=== PATIENT | male | born 1945 | race African-American/Black ===

== ENCOUNTER 2017-01-06 08:08 | Day surgery (SDC) | payer OTHER, BC ==
[2017-01-06 08:47] VITALS: BMI 23.1
[2017-01-06] MEDS ORDERED: PROPOFOL 20 ML ONE (09:57)
[2017-01-06] MEDS ORDERED: LIDOCAINE VISCOUS 2% ORAL/TOP 100 ML BOTTLE MM ONE ×2 (10:28)
[2017-01-06 11:00] VITALS: TEMP 98
[2017-01-06 12:05] VITALS: BP 132/76; PULSE 72
--- NOTE | 2017-01-07 12:22 | PATH ---
Surgical Pathology Report Patient Name: MATTHEW PIERCE [facility]. Rec. #: [id number] /Age/Gender: 1945 (Age: 71) / M Account: [id number] Location: [facility]-ENDOSCOPY Taken: 01/06/2017 Received: 01/06/2017 Reported: 01/07/2017 Physicians: Cesar Benavides M.D. Specimen(s) Received A: BX DUODENUM B: BX BODY OF STOMACH Clinical History GERD, early satiety, epigastric pain Celiac sprue, gastric erythema Final Diagnosis A. DUODENUM, BIOPSY : DUODENAL MUCOSA WITH ACTIVE AND CHRONIC INFLAMMATION AND FOCAL VILLUS BLUNTING (SEE COMMENT). Comment: History of celiac sprue is noted. The histologic findings, while not entirely specific, may represent gluten sensitive enteropathy (celiac sprue) in proper clinical and serological settings. B. STOMACH, BODY, BIOPSY: GASTRIC ANTRAL MUCOSA WITH MILD TO MODERATE CHRONIC GASTRITIS. IMMUNOSTAIN FOR H. PYLORI IS NEGATIVE FOR ORGANISMS. Electronically Signed Morales Faye M.D. Gross Description A. Received in formalin, labeled "biopsy duodenum" is a webb, irregular portion of soft tissue measuring 0.6 cm in greatest dimension. The specimen is submitted in toto in one cassette. B. Received in formalin, labeled "biopsy body of stomach" are 4 webb, irregular portions of soft tissue ranging from 0.1-0.2 cm in greatest dimension. The specimens are submitted in toto in one cassette. 01/06/201701/06/2017
== END 2017-01-06 12:09 | disposition home or self-care (01) ==
LOC: JASU-ENDO 08:08
PROVIDERS: ATTEND Internal Medicine Gastroenterology
PROC: 0DB98ZX Excision of Duodenum, Via Natural or Artificial Opening Endoscopic, Diagnostic (ICD-10-PCS; principal; 2017-01-06 09:00)
DX: K29.50 Unspecified chronic gastritis without bleeding (principal); K29.80 Duodenitis without bleeding; R19.4 Change in bowel habit; R68.81 Early satiety
CPT/HCPCS: 88305-TC; 88342-TC

== ENCOUNTER 2017-01-20 08:41 | Day surgery (SDC) | payer OTHER, BC ==
[2017-01-20] MEDS ORDERED: LIDOCAINE HCL/PF 2% SDV 5ML VIAL ONE (12:06)
[2017-01-20 12:13] VITALS: BMI 24.5
[2017-01-20 13:03] VITALS: TEMP 97.6
[2017-01-20] MEDS ORDERED: ACETAMINOPHEN 500 MG TABLET (FP) ONE (13:44)
[2017-01-20 16:00] VITALS: BP 110/65; PULSE 81
== END 2017-01-20 14:15 | disposition home or self-care (01) ==
LOC: JASU-ENDO 08:41
PROVIDERS: ATTEND Internal Medicine Gastroenterology
PROC: 0W3P8ZZ Control Bleeding in Gastrointestinal Tract, Via Natural or Artificial Opening Endoscopic (ICD-10-PCS; principal; 2017-01-20 12:30)
DX: K62.5 Hemorrhage of anus and rectum (principal); K62.7 Radiation proctitis; Z85.46 Personal history of malignant neoplasm of prostate; K57.30 Diverticulosis of large intestine without perforation or abscess without bleeding

== ENCOUNTER 2017-04-21 09:49 | Day surgery (SDC) | payer OTHER, BC ==
[2017-04-21 10:21] VITALS: BMI 23.1
[2017-04-21 13:19] VITALS: TEMP 97.6
[2017-04-21 13:36] VITALS: PULSE 71
[2017-04-21 14:33] VITALS: BP 130/80
== END 2017-04-21 14:32 | disposition home or self-care (01) ==
LOC: JASU-ENDO 09:49
PROVIDERS: ATTEND Internal Medicine Gastroenterology
PROC: 0D5P8ZZ Destruction of Rectum, Via Natural or Artificial Opening Endoscopic (ICD-10-PCS; principal; 2017-04-21 11:30)
DX: K62.5 Hemorrhage of anus and rectum (principal); K62.7 Radiation proctitis; Z85.46 Personal history of malignant neoplasm of prostate

== ENCOUNTER 2017-05-07 14:23 | Emergency (ER) | payer OTHER, BC ==
[2017-05-07 14:39] VITALS: TEMP 98.3; BMI 23.1
--- NOTE | 2017-05-07 16:21 | PDOC ---
Attending Attestation - Resident Resident Name: Nisa Bowling - ED Attending Attestation I have performed the following: I have examined & evaluated the patient, The case was reviewed & discussed with the resident, I agree w/resident's findings & plan, Exceptions are as noted - Medical Decision Making 05/07/17 16:21 I, Dr. Frances Reid, DO, attest that this document has been prepared under my direction and personally reviewed by me in its entirety. I further attest, that it accurately reflects all work, treatment, procedures and medical decision -making performed by me. 05/07/17 18:16 a/p: 72yo male with R rib pain after falling -pt s/p lung transplant will obtain ct chest also to r/o rib fractures, none seen on wet read of xray -xray knee no acute fractures -pt has been ambulatory in the ED -pain control <Frances Reid - Last Filed: 05/07/17 18:16> - HPI HPI: 05/07/17 17:38 Rusty Cook Pt is a 72 yo M with a PMHx of prostate CA, Double lung transplant, bladder CA who presents to the ED s/p mechanical fall. Patient reports he was getting out of his car when tripped on a rock and fell approximately 2-30 feet down an aqueduct. Patient reports R ribcage pain and L knee pain. Patient denied any head trauma, headache, neck pain, nausea or vomiting. - Physicial Exam PE: 05/07/17 17:38 GENERAL: Awake, alert, and fully oriented, in no acute distress HEAD: No signs of trauma EYES: PERRLA, EOMI, sclera anicteric, conjunctiva clear ENT: Auricles normal inspection, hearing grossly normal, nares patent, oropharynx clear without exudates. Moist mucosa NECK: Normal ROM, supple, no lymphadenopathy, JVD, or masses LUNGS: Breath sounds equal, clear to auscultation bilaterally. No wheezes, and no crackles HEART: +Tenderness to R lateral and anterior chest wall. Well healed scar underneath chest area. Regular rate and rhythm, normal S1 and S2, no murmurs, rubs or gallops ABDOMEN: Soft, nontender, normoactive bowel sounds. No guarding, no rebound. No masses EXTREMITIES: Normal range of motion, no edema. No clubbing or cyanosis. No cords, erythema, or tenderness. Full ROM NEUROLOGICAL: Cranial nerves II through XII grossly intact. Normal speech, normal gait SKIN: No ecchymosis. Warm, Dry, normal turgor, no rashes or lesions noted. - Medical Decision Making 05/07/17 17:38 Documentation prepared by Henna Munson, acting as medical sonographer for Frances Reid DO 05/07/17 17:42 <Henna Munson - Last Filed: 05/07/17 19:00>
[2017-05-07] MEDS ORDERED: traMADol HCL 50 MG TABLET PO ONE (17:35)
[2017-05-07] MEDS ORDERED: traMADol HCL 50 MG TABLET ONE (17:40)
--- NOTE | 2017-05-07 17:42 | PDOC ---
History of Present Illness - General Chief Complaint: Injury Stated Complaint: FELL Time Seen by Provider: 05/07/17 15:25 History Source: Patient - History of Present Illness Initial Comments: 05/07/17 18:02 CC: Fall Patient is a 72 y.o. male with a PMH of sarcoidosis (s/p B/L Lung Transplant in 2004) who presents to our ED today following a mechanical fall. Patient was getting out of his car and tripped over a rock somsersaulting and then falling on his L side. Patient estimates he rolled 15-20 feet and denies any loss of consciousness or head trauma. Patient notes he is able to ambulate post fall, however he has significant knee pain when trying to flex or extend his LLE. Past History - Past Medical History Allergies/Adverse Reactions: Allergies Allergy/AdvReac Type Severity Reaction Status Date / Time levofloxacin [From Levaquin] Allergy Verified 05/07/17 14:38 Penicillins Allergy Verified 05/07/17 14:38 plasma protein fraction Allergy Verified 05/07/17 14:38 Home Medications: Ambulatory Orders Magnesium 420 mg PO BID 01/30/16 Prednisone 10 mg PO DAILY 01/30/16 Multivitamin with Minerals [Icaps Plus] 1 each PO DAILY 01/06/17 Pantoprazole Sodium [Protonix -] 40 mg PO DAILY #30 tablet.ec 01/06/17 Tacrolimus [Prograf] 2.5 mg PO BID 01/06/17 Tamsulosin HCl [Flomax -] 0.4 mg PO DAILY 01/06/17 Tramadol HCl [Ultram -] 50 mg PO Q6H 01/06/17 Calcium (Oyster Shell) [Os-Ottoniel 500MG -] 500 mg PO DAILY 04/20/17 Hydrophilic Ointment 1 applic TP DAILY 04/20/17 Hyoscyamine Sulfate 0.125 mg SL Q4HWA PRN 04/21/17 Hypromellose 0.5% Opth Soln [Artificial Tears] 1 drop IO DAILY 04/21/17 Lidocaine 2% Viscous Oral/Top [Xylocaine 2% Viscous] 15 ml MM 5XD PRN 04/21/17 Oxybutynin Chloride 5 mg PO TID 04/21/17 Pentosan Polysulfate Sodium [Elmiron] 100 mg PO TID 04/21/17 Phenazopyridine HCl 100 mg PO TID 04/21/17 Trospium Chloride [Trospium Chloride ER] 20 mg PO BID 04/21/17 Lidocaine 5% Patch [Lidoderm -] 1 patch TP DAILY #7 patch 05/07/17 Tramadol HCl [Ultram -] 50 mg PO Q8H #30 tablet MDD 4 05/07/17 Cancer: Yes (PROSTATE CA) Diabetes: Yes (DIET CONTROLLED) GI Disorders: Yes (ESOPHAGEAL REFLUX,RECTAL BLEEDING) Disorders: (POOR KIDNEY FUNCTION) Hypercholesterolemia: Yes Liver Disease: (ELEVATED LIVER ENZYMES) Lung CA: (B/L LUNG TRANSPLANT DUE TO SARCODOSIS) - Surgical History Abdominal Surgery: Yes (HERNIA SX) Cholecystectomy: Yes Lung Surgery: Yes (BILATERAL LUNG TRANSPLANT) - Suicide/Smoking/Psychosocial Hx Smoking History: Unknown if ever smoked Have you smoked in the past 12 months: No Information on smoking cessation initiated: No Hx Alcohol Use: No Drug/Substance Use Hx: No Substance Use Type: None Review of Systems - Review of Systems Constitutional: No: Chills, Fever HEENTM: No: Blurred Vision, Throat Pain Respiratory: No: Cough, Shortness of Breath Cardiac (ROS): Yes: Chest Pain. No: Irregular Heart Rate, Lightheadedness, Palpitations ABD/GI: No: Constipated, Diarrhea, Nausea, Vomiting Musculoskeletal: Yes: Joint Pain All Other Systems: Reviewed and Negative *Physical Exam - Vital Signs Last Vital Signs Temp Pulse Resp BP Pulse Ox 98.3 F 79 18 113/70 100 05/07/17 14:34 05/07/17 14:34 05/07/17 14:34 05/07/17 14:34 05/07/17 14:34 - Physical Exam General Appearance: Yes: Nourished, Thin Neck: positive: Trachea midline, Supple Respiratory/Chest: positive: Lungs Clear, Normal Breath Sounds Cardiovascular: positive: Regular Rhythm, Regular Rate, S1, S2 Gastrointestinal/Abdominal: positive: Normal Bowel Sounds, Soft Musculoskeletal: positive: Other (TTP R sided precordial chest pain) Extremity: positive: Normal Capillary Refill, Normal Inspection, Other (L patellar TTP, pain on flexion and extension, no appreciable patellar swelling) Integumentary: positive: Normal Color, Dry, Warm Neurologic: positive: Fully Oriented, Alert Deep Tendon Reflexes: Knee (L): 1+, Knee (R): 1+ ED Treatment Course - RADIOLOGY Radiology Studies Ordered: Category Date Time Status CHEST PA & LAT [RAD] Stat Radiology 05/07/17 16:07 Taken KNEE 3 POS-LEFT [RAD] Stat Radiology 05/07/17 16:07 Taken - Medications Given in the ED: ED Medications Discontinued Medications Generic Name Dose Route Start Last Admin Trade Name Kevinq PRN Reason Stop Dose Admin Tramadol HCl 50 mg 05/07/17 17:35 05/07/17 17:39 Ultram - PO 05/07/17 17:36 50 mg ONCE ONE Administration Medical Decision Making - Medical Decision Making 05/07/17 18:14 Patient is a 72 y.o. male who presents following a mechanical fall. As patient has a h/o B/L lung transplant, clinical threshold for admission for rib fractures is low, CT chest ordered as well as L knee XR. Patient signed out to Dr. Brown (Resident) and Dr. Saini (Attending). *DC/Admit/Observation/Transfer Diagnosis at time of Disposition: Chest wall contusion - Discharge Dispostion Disposition: HOME Condition at time of disposition: Good - Prescriptions Prescriptions: Lidocaine 5% Patch [Lidoderm -] 1 patch TP DAILY #7 patch Tramadol HCl [Ultram -] 50 mg PO Q8H #30 tablet MDD 4 - Patient Instructions Printed Discharge Instructions: DI for Rib Contusion
[2017-05-07 19:59] VITALS: BP 114/71; PULSE 72
--- NOTE | 2017-05-07 20:10 | PDOC ---
*Physical Exam - Vital Signs Last Vital Signs Temp Pulse Resp BP Pulse Ox 98.3 F 72 17 114/71 97 05/07/17 14:34 05/07/17 19:57 05/07/17 19:57 05/07/17 19:57 05/07/17 19:57 - Physical Exam Comments: 05/07/17 20:21 GENERAL: Awake, alert, and fully oriented, in no acute distress HEAD: No signs of trauma, normocephalic, atraumatic EYES: PERRLA, EOMI, sclera anicteric, conjunctiva clear ENT: Auricles normal inspection, hearing grossly normal, nares patent, oropharynx clear without exudates. Moist mucosa LUNGS: No distress, speaks full sentences, clear to auscultation bilaterally HEART: Regular rate and rhythm, normal S1 and S2, no murmurs, rubs or gallops, peripheral pulses normal and equal bilaterally. EXTREMITIES: Normal inspection, Normal range of motion, no edema. No clubbing or cyanosis. NEUROLOGICAL: Cranial nerves II through XII grossly intact. Normal speech, no focal sensorimotor deficits ED Treatment Course - Medications Given in the ED: ED Medications Discontinued Medications Generic Name Dose Route Start Last Admin Trade Name Freq PRN Reason Stop Dose Admin Tramadol HCl 50 mg 05/07/17 17:35 05/07/17 17:39 Ultram - PO 05/07/17 17:36 50 mg ONCE ONE Administration Medical Decision Making - Medical Decision Making 05/07/17 20:[address] Bowling. Vital signs stable. Patient is pending CT Chest to evaluate for rib fractures. S/P b/l lung transplant, will admit to [facility] if there are multiple rib fractures. 05/07/17 20:35 CT negative. Will discharge with return precautions and follow up. *DC/Admit/Observation/Transfer Diagnosis at time of Disposition: Chest wall contusion Qualifiers: Encounter type: initial encounter - Discharge Dispostion Disposition: HOME Condition at time of disposition: Good Admit: No - Prescriptions Prescriptions: Tramadol HCl [Ultram -] 50 mg PO Q8H #30 tablet MDD 4 - Patient Instructions Printed Discharge Instructions: DI for Rib Contusion
--- NOTE | 2017-05-07 20:35 | PDOC ---
*Physical Exam - Vital Signs Last Vital Signs Temp Pulse Resp BP Pulse Ox 98.3 F 72 17 114/71 97 05/07/17 14:34 05/07/17 19:57 05/07/17 19:57 05/07/17 19:57 05/07/17 19:57 ED Treatment Course - Medications Given in the ED: ED Medications Discontinued Medications Generic Name Dose Route Start Last Admin Trade Name Freq PRN Reason Stop Dose Admin Tramadol HCl 50 mg 05/07/17 17:35 05/07/17 17:39 Ultram - PO 05/07/17 17:36 50 mg ONCE ONE Administration *DC/Admit/Observation/Transfer Diagnosis at time of Disposition: Contusion of chest wall Qualifiers: Encounter type: initial encounter - Discharge Dispostion Disposition: HOME Condition at time of disposition: Stable Admit: No - Prescriptions Prescriptions: Tramadol HCl [Ultram -] 50 mg PO Q8H #30 tablet MDD 4 - Patient Instructions Printed Discharge Instructions: DI for Rib Contusion
== END 2017-05-07 20:58 | disposition home or self-care (01) ==
LOC: JERFT 14:23 → JER 14:23
DX: S20.219A Contusion of unspecified front wall of thorax, initial encounter (principal); W17.81XA Fall down embankment (hill), initial encounter; Y93.89 Activity, other specified; Y92.9 Unspecified place or not applicable
CPT/HCPCS: 71020-TC; 71250-TC; 73562-TC-LT; 99283-25

== ENCOUNTER 2018-01-23 18:57 | Emergency (ER) | payer OTHER, BC ==
[2018-01-23 19:39] VITALS: BP 122/63; PULSE 85; TEMP 98.2; BMI 21.4
--- NOTE | 2018-01-23 20:03 | PDOC ---
History of Present Illness - General Chief Complaint: Laceration Stated Complaint: LACERATION Time Seen by Provider: 01/23/18 19:53 History Source: Patient Exam Limitations: No Limitations - History of Present Illness Initial Comments: 01/23/18 19:58 Best Contact: PCP: Dr. 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 Patient states as he was attempting to close a window at his home which was off track, his listed the window as far as she can not realizing the spring didn't catch and the window slammed onto the patient's finger. Patient denies extremity numbness or tingling sensation. Patient denies any other injuries or complaints. Unknown last tetanus. Bleeding controlled with direct pressure prior to his arrival. Patient states he is able to move his fingers without difficulties. Patient states he is also complaining of chronic low back pain without bladder or bowel dysfunction, extremity numbness or tingling sensation. Past History - Past Medical History Allergies/Adverse Reactions: Allergies Allergy/AdvReac Type Severity Reaction Status Date / Time levofloxacin [From Levaquin] Allergy Verified 01/23/18 19:38 Penicillins Allergy Verified 01/23/18 19:38 plasma protein fraction Allergy Verified 01/23/18 19:38 Home Medications: Ambulatory Orders Magnesium 420 mg PO BID 01/30/16 Prednisone 10 mg PO DAILY 01/30/16 Multivitamin with Minerals [Icaps Plus] 1 each PO DAILY 01/06/17 Pantoprazole Sodium [Protonix -] 40 mg PO DAILY #30 tablet.ec 01/06/17 Tacrolimus [Prograf] 2.5 mg PO BID 01/06/17 Tamsulosin HCl [Flomax -] 0.4 mg PO DAILY 01/06/17 traMADol HCL [Ultram -] 50 mg PO Q6H 01/06/17 Calcium (Oyster Shell) [Os-Ottoniel 500MG -] 500 mg PO DAILY 04/20/17 Hydrophilic Ointment 1 applic TP DAILY 04/20/17 Hyoscyamine Sulfate 0.125 mg SL Q4HWA PRN 04/21/17 Hypromellose 0.5% Opth Soln [Artificial Tears] 1 drop IO DAILY 04/21/17 Lidocaine 2% Viscous Oral/Top [Xylocaine 2% Viscous] 15 ml MM 5XD PRN 04/21/17 Oxybutynin Chloride 5 mg PO TID 04/21/17 Pentosan Polysulfate Sodium [Elmiron] 100 mg PO TID 04/21/17 Phenazopyridine HCl 100 mg PO TID 04/21/17 Trospium Chloride [Trospium Chloride ER] 20 mg PO BID 04/21/17 Lidocaine 5% Patch [Lidoderm -] 1 patch TP DAILY #7 patch 05/07/17 traMADol HCL [Ultram -] 50 mg PO Q8H #30 tablet MDD 4 05/07/17 Cancer: Yes (PROSTATE CA) Diabetes: Yes (DIET CONTROLLED) GI Disorders: Yes (ESOPHAGEAL REFLUX,RECTAL BLEEDING) Disorders: (POOR KIDNEY FUNCTION) Hypercholesterolemia: Yes Liver Disease: (ELEVATED LIVER ENZYMES) Lung CA: (B/L LUNG TRANSPLANT DUE TO SARCODOSIS) - Surgical History Abdominal Surgery: Yes (HERNIA SX) Cholecystectomy: Yes Lung Surgery: Yes (BILATERAL LUNG TRANSPLANT) - Suicide/Smoking/Psychosocial Hx Smoking History: Never smoked Have you smoked in the past 12 months: No Information on smoking cessation initiated: No Hx Alcohol Use: No Drug/Substance Use Hx: No Substance Use Type: None Review of Systems - Review of Systems Able to Perform ROS?: Yes Comments:: 01/23/18 20:00 CONSTITUTIONAL: Absent: fever, chills, diaphoresis, generalized weakness, malaise, loss of appetite MUSCULOSKELETAL: Absent: myalgia, arthralgia, joint swelling SKIN: Absent: rash, itching, pallor HEMATOLOGIC/IMMUNOLOGIC: Absent: easy bleeding, easy bruising, lymphadenopathy, frequent infections Right 3rd digit; lac to dorsal dip/ absent: Numbness/tingling sensation 01/23/18 20:37 CARDIOVASCULAR: Absent: chest pain, loss of consciousness, palpitations, irregular heart rate, peripheral edema RESPIRATORY: Absent: cough, shortness of breath, dyspnea with exertion, orthopnea, wheezing, stridor, hemoptysis GASTROINTESTINAL: Absent: abdominal pain, abdominal distension, nausea, vomiting, diarrhea, constipation, melena, hematochezia GENITOURINARY: Absent: dysuria, frequency, urgency, hesitancy, hematuria, flank pain, genital pain MUSCULOSKELETAL: B/L LBP Absent: myalgia, arthralgia, joint swelling SKIN: Absent: rash, itching, pallor HEMATOLOGIC/IMMUNOLOGIC: Absent: easy bleeding, easy bruising, lymphadenopathy, frequent infections ENDOCRINE: Absent: unexplained weight gain, unexplained weight loss, heat intolerance, cold intolerance NEUROLOGIC: Absent: headache, focal weakness or paresthesias, dizziness, unsteady gait, seizure, mental status changes, bladder or bowel incontinence PSYCHIATRIC: Absent: anxiety, depression, suicidal or homicidal ideation, hallucinations. Is the patient limited Bengali proficient: No *Physical Exam - Vital Signs Last Vital Signs Temp Pulse Resp BP Pulse Ox 98.2 F 85 16 122/63 97 01/23/18 19:34 01/23/18 19:34 01/23/18 19:34 01/23/18 19:34 01/23/18 19:34 - Physical Exam Comments: 01/23/18 20:01 GENERAL: Well developed, well nourished. Awake and alert. No acute distress. HEENT: Normocephalic, atraumatic. PERRLA, EOMI. No conjunctival pallor. Sclera are non- icteric. Moist mucous membranes. Oropharynx is clear. NECK: Supple. Full ROM. No JVD. Carotid pulses 2+ and symmetric, without bruits. No thyromegaly. No lymphadenopathy. CARDIOVASCULAR: Regular rate and rhythm. No murmurs, rubs, or gallops. Distal pulses are 2+ and symmetric. PULMONARY: No evidence of respiratory distress. Lungs clear to auscultation bilaterally. No wheezing, rales or rhonchi. ABDOMINAL: Soft. Non-tender. Non-distended. No rebound or guarding. No organomegaly. Normoactive bowel sounds. MUSCULOSKELETAL Normal range of motion at all joints. No bony deformities or tenderness. No CVA tenderness. EXTREMITIES: No cyanosis. No clubbing. No edema. No calf tenderness. SKIN: Warm and dry. Normal capillary refill. No rashes. No jaundice. NEUROLOGICAL: Alert, awake, appropriate. Cranial nerves 2-12 intact. No deficits to light touch and temperature in face, upper extremities and lower extremities. No motor deficits in the in face, upper extremities and lower extremities. Normoreflexic in the upper and lower extremities. Normal speech. Toes are down- going bilaterally. Gait is normal without ataxia. PSYCHIATRIC: Cooperative. Good eye contact. Appropriate mood and affect. GENERAL: Well developed, well nourished. Awake and alert. No acute distress. MUSCULOSKELETAL Normal range of motion at all joints. No bony deformities or tenderness. No CVA tenderness. EXTREMITIES: No cyanosis. No clubbing. No edema. No calf tenderness. SKIN: Warm and dry. Normal capillary refill. No rashes. No jaundice. Right third dorsal DIP 2.5 cm transverse partial thickness laceration 2 point sensation intact Full range of motion 5/5 strength on resistance during flexion and extension Capillary refill less than 2 seconds NVI PROCEDURE NOTE Right third dorsal DIP 2.5 cm transverse laceration 1cm tansverse lac/partial thickness to mid dorsal phalanx 1% lidocaine/digital block: 1.5 mL Wound exploration: Extensor tendon visualize and explored during complete flexion and extension: Negative laceration appreciated on the tendon Normal saline irrigation/copious (3) 5-0 nylon simple interrupted/skin/dorsal dip (2) 5.0 nylon interrupted mid dorsal phalanx Bacitracin Band-Aid volar splint 01/23/18 20:38 ED Treatment Course - RADIOLOGY Radiology Studies Ordered: Category Date Time Status FINGER(S) RIGHT [RAD] Stat Radiology 01/23/18 19:57 Ordered Radiograph Interpretation: 01/23/18 20:04 Xray 3rd digit neg fx/dislocations *DC/Admit/Observation/Transfer Diagnosis at time of Disposition: Finger laceration Qualifiers: Encounter type: initial encounter Finger: middle finger Damage to nail status: without damage Foreign body presence: without foreign body Laterality: right Qualified Code(s): S61.212A - Laceration without foreign body of right middle finger without damage to nail, initial encounter Chronic low back pain Qualifiers: Back pain laterality: bilateral Sciatica presence: without sciatica Qualified Code(s): M54.5 - Low back pain; G89.29 - Other chronic pain - Discharge Dispostion Condition at time of disposition: Stable Decision to Admit order: No - Referrals Referrals: Derik Madrigal MD [Staff Physician] - - Patient Instructions Printed Discharge Instructions: DI for Laceration Repair, DI for Low Back Pain Additional Instructions: Keep the incision clean and dry for 24 hours. After 24 hours, you may allow the soap and water to rinse off your incision. Avoid direct pressure of the water to the incision. Pat the incision dry with a clean clothe. Apply a small amount of bacitracin onto the incision. Cover the incision loosely with a bandaid. Take tylenol/motrin as needed for pain. Follow up with your physician or the ER in 48 hours for a wound check. Return to the ER if you notice red streaks, increase redness/swelling/severe pain to the incision. Suture removal in 11 days. - Post Discharge Activity
[2018-01-23] MEDS ORDERED: KETOROLAC TROMETHAMINE 30 MG/1 ML VIAL IM ONE (20:35)
[2018-01-23] MEDS ORDERED: KETOROLAC TROMETHAMINE 30 MG/1 ML VIAL ONE (20:36)
[2018-01-23] MEDS ORDERED: DIPHTH,PERTUSS(ACELL),TET 0.5 ML DISP.SYRIN IM ONE (20:44)
== END 2018-01-23 20:49 | disposition home or self-care (01) ==
LOC: JERFT 18:57
PROC: 3E0234Z Introduction of Serum, Toxoid and Vaccine into Muscle, Percutaneous Approach (ICD-10-PCS; principal; 2018-01-23)
PROC: 3E0233Z Introduction of Anti-inflammatory into Muscle, Percutaneous Approach (ICD-10-PCS; 2018-01-23)
PROC: 0JQJ0ZZ Repair Right Hand Subcutaneous Tissue and Fascia, Open Approach (ICD-10-PCS; 2018-01-23)
PROC: 2W3CX1Z Immobilization of Right Lower Arm using Splint (ICD-10-PCS; 2018-01-23)
DX: S61.212A Laceration without foreign body of right middle finger without damage to nail, initial encounter (principal); W23.0XXA Caught, crushed, jammed, or pinched between moving objects, initial encounter; Y93.89 Activity, other specified; Y92.018 Other place in single-family (private) house as the place of occurrence of the external cause; Y99.8 Other external cause status; M54.5 Low back pain; G89.29 Other chronic pain; K21.9 Gastro-esophageal reflux disease without esophagitis; Z85.46 Personal history of malignant neoplasm of prostate; Z94.2 Lung transplant status; Z88.0 Allergy status to penicillin; Z88.1 Allergy status to other antibiotic agents; E11.9 Type 2 diabetes mellitus without complications
CPT/HCPCS: 12001; 29125; 73140-TC-RT-FY; 90471; 90715; 96372; 99281-25